=== PATIENT | male | born 1965 | race Caucasian/White ===

== ENCOUNTER 2018-11-11 21:39 | Inpatient (IN) ==
[2018-11-11 22:06] LABS: Hematocrit 41.5 % (42.0-52.0); Hemoglobin 14.1 gm/dL (13.5-18.0); Mean Cell Volume 93.3 fl (78-100); Mean Corpuscular Hemoglobin 31.7 pg (27-31); Mean Platelet Volume 10.5 fl (8-11.3); Neutrophil # 13.3 K/mm3 (1.3-6.0); Neutrophil % 80.3 % (42-75.0); Platelet Count 194 K/mm3 (150-450); Red Blood Count 4.45 M/mm3 (4.7-6.0); Red Cell Distribution Width 12.3 % (11.5-14.0); White Blood Count 16.6 K/mm3 (4.0-10.5)
[2018-11-11 22:23] LABS: Albumin * 3.1 gm/dl (3.4-5.0); Anion Gap 13.1 mmol/L (6.8-13.8); BUN/Creatinine Ratio 8.8 (9.0-21.6); Bilirubin, Total 0.4 mg/dL (0.0-1.1); Ca. Corrected For Albumin 9.2 mg/dL (8.4-10.2); Calcium * 8.8 mg/dL (7.9-10.9); Carbon Dioxide 27.7 mmol/L (24-32.6); Potassium 3.8 mmol/L (3.4-4.6); Total Protein 7.1 gm/dL (6.2-8.2)
[2018-11-11] MEDS ORDERED: ALBUTEROL SULFATE/IPRATROPIUM 3 ML NEBU IH ONE (22:31)
--- NOTE | 2018-11-11 22:32 | ERNOTE ---
Time Seen by Provider: 11/11/18 22:21 Stated Complaint: URI Presenting Symptoms:: cough Source: patient Exam Limitations: no limitations Immunizations: IMMUNIZATION HX Immunizations Up to Date Yes Allergies/Adverse Reactions: Allergies No Known Allergies Allergy (Unverified 11/11/18 21:52) Home Medications: HOME MEDICATIONS NK 11/11/18 [Last Taken Unknown] - History of Present Ilness Narrative: Patient states he has been had increased cough for a week or more. He has had s ome yellow and clear sputum. He states he has had some chills but does not know if he has had fever. Timing: getting worse Severity: moderate Frequency/Possible Cause: Reports: no prior episodes Modifying Factors - Improves: Reports: rest Modifying Factors - Worsens: Reports: activity, coughing Associated Symptoms: Reports: shortness of breath Review of Systems - Review of Systems Constitutional: Present: See HPI, fatigue EYE: Absent: vision changes ENT: Absent: nose congestion, nasal drainage Respiratory: Present: See HPI, shortness of breath, cough Cardiology: Absent: chest pain, palpitations Gastrointestinal/Abdominal: Present: eating less. Absent: nausea, vomiting Genitourinary: Absent: frequency, dysuria Musculoskeletal: Absent: back pain, muscle pain Skin: Absent: rash Neurological: Absent: numbness, tingling Medical History (Updated 11/11/18 @ 22:48 by Kan Mendez DO) No pertinent past medical history Surgical History: Surgical History (Updated 11/11/18 @ 21:52 by Judit Marie RN) No pertinent past surgical history Family History: Family History (Updated 11/11/18 @ 21:52 by Judit Marie RN) Other No pertinent family history Social History: Preferred Language Somali Do you have any congregational or No cultural preference? Smoking Status Current every day smoker Alcohol Use rarely Drug Use none No Social History Section defined Physical Exam - Physical Exam General Appearance: Present: wd/wn, alert, no apparent distress Head Exam: Present: normal inspection, no evidence of injury Neck: Present: normal inspection, nontender, supple Respiratory: Present: no respiratory distress, no accessory muscle use, expiration (prolonged), wheezing Cardiovascular/Chest: Present: no murmur, tachycardia Back Exam: Present: normal inspection, normal range of motion, no vertebral tenderness Extremity Exam: Present: normal inspection, normal range of motion Neurological Exam: Present: alert, oriented, normal mood/affect Skin Exam: Present: normal color, warm/dry Progress - Results and Orders Patient's Lab Results:: I have reviewed the patient's lab results. Results and Orders: Laboratory Tests 11/11/18 11/11/18 22:05 22:05 WBC 16.6 H Hgb 14.1 Hct 41.5 L Plt Count 194 Neutrophils % 80.3 H Sodium 132 Potassium 3.8 Chloride 95 L BUN 10 Creatinine 1.13 Random Glucose 98 Calcium 8.8 AST 21 ALT 26 - Vital Signs Patient's Vital Signs:: I have reviewed the patient's vital signs. Vital Signs: Vital Signs 11/11/18 21:49 Temperature 38.4 C H Pulse Rate 104 H Respiratory Rate 20 Blood Pressure 119/68 O2 Sat by Pulse Oximetry 92 L - X-Ray X-Ray #1 X-Ray: chest Interpretation: Interp. by me X-ray Comments: Early left lower lobe infiltrate. - Progress/Reassessment Chief Complaint: Upper Respiratory Symptoms Progress:: Unchanged Progress Note-Subjective: 11/11/18 23:[address] Hernandez she agrees with admission for community acquired pneumonia. 11/11/18 23:43 I spoke to the patient and his the patient was a little resistant to admission but agrees due to the fact that his oxygen levels are low. Departure Clinical Impression: Community acquired pneumonia Qualifiers: Laterality: left Lung location: lower lobe of lung Qualified Code(s): J18.1 - Lobar pneumonia, unspecified organism - Departure Disposition: Still a patient Condition: Good
[2018-11-11] MEDS ORDERED: cefTRIAXone SODIUM 1,000 MG/100 ML BAG IV ONE (22:50)
[2018-11-12] MEDS ORDERED: AZITHROMYCIN 250 MG TABLET PO ONE (00:11)
[2018-11-12] MEDS ORDERED: ACETAMINOPHEN 325 MG TABLET PO PRN (01:35)
[2018-11-12] MEDS: CEFDINIR 300 MG CAPSULE PO SCH ×2 (08:31→20:20)
--- NOTE | 2018-11-12 08:45 | HP ---
Chief Complaint - Chief Complaint Date of Service: 11/12/18 Time of Service: 08:45 Chief Complaint: shortness of breath History of Present Illness: Patient without past medical history presented to the ER after several days of cough and not feeling well. She got sunburned on November 02 and felt like he is dehydrated. He was more tired and worn out. He developed some cold symptoms with sinus congestion and cough. He was taking [id number] sinus and headache medication. He felt better 4 days prior, and mowed his lawn. That evening he developed shortness of breath. He had a productive cough of yellow sputum. He has been having a headache and felt warm, but did not check his temperature. He came to the ER yesterday after just not getting better. His appetite is decreased. He occasionally hears himself wheeze. He smokes a pack to a pack and a half since the age of 19. He has some chest pain with his cough. Denied nausea, vomiting, diarrhea, skin changes, urinary changes. In the ED, white blood cell count was 16.6, and lactate of 1.1. He had a fever of 38.4 on admission. He is requiring 3 L via nasal cannula. Chest x-ray shows a pneumonia in the left lower lobe. He was started on Rocephin and a azithromycin. He was also noted to have some mild hypoalbuminemia, with an albumin of 3.1. Medical History (Updated 11/11/18 @ 22:48 by Kan Mendez DO) No pertinent past medical history Surgical History: Surgical History (Updated 11/12/18 @ 00:42 by Bing Montes RN) Hx of tonsillectomy No pertinent past surgical history Family History: Family History (Last Updated 11/12/18 @ 00:45 by Bing Montes RN) Father Diabetes Hodgkin disease Mother History of thyroidectomy Mother Mechanical heart valve present Other No pertinent family history Social History: Patient Lives/Resources Home Utilized Occupation [employer] Preferred Language Turkmen Do you have any buddhism or Yes: Restoration cultural preference? Smoking Status Current some day smoker Have you smoked in the past 12 Yes months Do you dip or chew tobacco No Alcohol Use rarely Drug Use none No Social History Section defined Review Of Systems (GEN) - Review of Systems Generalized/Overall Review: Present: Malaise. Absent: Fever EENTM: Present: Nose Congestion Respiratory: Present: Cough, Shortness of Breath, Wheezing Cardiac: Present: Chest Pain. Absent: Edema Abdominal: Absent: Nausea - With cough, Vomiting, Diarrhea Genitourinary: Present: No Symptoms Reported Musculoskeletal: Present: No Symptoms Reported Neurological: Present: Headache Skin: Present: No Symptoms Reported Immunizations: IMMUNIZATION HX Immunizations Up to Date Yes Allergies/Adverse Reactions: Allergies Allergy/AdvReac Type Severity Reaction Status Date / Time No Known Allergies Allergy Unverified 11/11/18 21:52 Home Medications: HOME MEDICATIONS NK 11/11/18 [Last Taken Unknown] Exam - Exam Vital Signs: Vital Signs - Last Taken Temp 36.8 C 11/12/18 07:00 Pulse 80 11/12/18 07:00 Resp 17 11/12/18 07:00 BP 107/64 11/12/18 07:00 Pulse Ox 93 11/12/18 07:08 Constitutional: Present: Alert, Oriented x3, Cooperative, No distress, Other - thin ENT Exam: Present: dry mucous membranes Respiratory: Present: lungs clear, normal breath sounds, no respiratory distress, No wheezing, other - wearing O2 via NC at 3L Cardiovascular/Chest: Present: regular rate, rhythm. Absent: edema Abdomen: Present: Normal bowel sounds, soft, nontender Extremity: Absent: lower extremity edema Neurologic: Present: normal mood/affect Eye contact: Present: cooperative Diagnostic Studies: Abnormal Lab Results 11/11/18 11/11/18 Range/Units 22:05 22:05 WBC 16.6 H (4.0-10.5) K/mm3 RBC 4.45 L (4.7-6.0) M/mm3 Hct 41.5 L (42.0-52.0) % MCH 31.7 H (27-31) pg Immature Gran % (Auto) 0.50 H (0.001-0.429) % Immature Gran # (Auto) 0.09 H (0.000-0.0310) K/mm3 Neutrophils % 80.3 H (42-75.0) % Lymphocytes % 10.3 L (20-51) % Neutrophils # 13.3 H (1.3-6.0) K/mm3 Monocytes # 1.4 H (0.0-1.0) k/mm3 Chloride 95 L (97-106) mmol/L BUN/Creatinine Ratio 8.8 L (9.0-21.6) Albumin 3.1 L (3.4-5.0) gm/dl Laboratory Results WBC 16.6 K/mm3 (4.0-10.5) H 11/11/18 22:05 RBC 4.45 M/mm3 (4.7-6.0) L 11/11/18 22:05 Hgb 14.1 gm/dL (13.5-18.0) 11/11/18 22:05 Hct 41.5 % (42.0-52.0) L 11/11/18 22:05 MCV 93.3 fl (78-100) 11/11/18 22:05 MCH 31.7 pg (27-31) H 11/11/18 22:05 MCHC 34.0 g/dl (32-36) 11/11/18 22:05 RDW 12.3 % (11.5-14.0) 11/11/18 22:05 Plt Count 194 K/mm3 (150-450) 11/11/18 22:05 MPV 10.5 fl (8-11.3) 11/11/18 22:05 Immature Gran % (Auto) 0.50 % (0.001-0.429) H 11/11/18 22:05 Immature Gran # (Auto) 0.09 K/mm3 (0.000-0.0310) H 11/11/18 22:05 80.3 % (42-75.0) H 11/11/18 22:05 10.3 % (20-51) L 11/11/18 22:05 8.6 % (0.0-9) 11/11/18 22:05 0.1 % (0.0-3.0) 11/11/18 22:05 0.2 % (0.0-1.0) 11/11/18 22:05 Nucleated RBC % 0.0 k/mm3 (0-1) 11/11/18 22:05 13.3 K/mm3 (1.3-6.0) H 11/11/18 22:05 1.71 k/mm3 (1.5-3.5) 11/11/18 22:05 1.4 k/mm3 (0.0-1.0) H 11/11/18 22:05 0.0 k/mm3 (0.0-0.7) 11/11/18 22:05 Absolute Basophils 0.0 k/mm3 (0.0-0.1) 11/11/18 22:05 Sodium 132 mmol/L (132-142) 11/11/18 22:05 132 mmol/L (130-142) 11/11/18 22:05 Potassium 3.8 mmol/L (3.4-4.6) 11/11/18 22:05 Chloride 95 mmol/L (97-106) L 11/11/18 22:05 Carbon Dioxide 27.7 mmol/L (24-32.6) 11/11/18 22:05 13.1 mmol/L (6.8-13.8) 11/11/18 22:05 BUN 10 mg/dL (6-23) 11/11/18 22:05 1.13 mg/dL (0.4-1.4) 11/11/18 22:05 Est GFR (Non-Af Amer) 72 mL/min (60-130) 11/11/18 22:05 8.8 (9.0-21.6) L 11/11/18 22:05 98 mg/dL (70-110) 11/11/18 22:05 1.1 mmol/L (0.4-2.0) 11/11/18 22:05 Calcium 8.8 mg/dL (7.9-10.9) 11/11/18 22:05 Calcium Adj for Albumin 9.2 mg/dL (8.4-10.2) 11/11/18 22:05 0.4 mg/dL (0.0-1.1) 11/11/18 22:05 AST 21 U/L (0-48) 11/11/18 22:05 ALT 26 U/L (19-67) 11/11/18 22:05 67 U/L (50-170) 11/11/18 22:05 7.1 gm/dL (6.2-8.2) 11/11/18 22:05 3.1 gm/dl (3.4-5.0) L 11/11/18 22:05 Assessment/Plan - Assessment/Plan (1) Community acquired pneumonia Assessment: With his smoking history, patient may have underlying COPD. He received a dose of Rocephin and azithromycin last night in the ER. Will administer 3 days of prednisone. We will transition to p.o. Ceftinir, continue azithromycin, and wean O2 as tolerated. Currently requiring 3 L via nasal cannula. Anticipate DC within 24 to 48 hours. Problem: Acute Qualifiers: Laterality: left Lung location: lower lobe of lung Qualified Code(s): J18.1 - Lobar pneumonia, unspecified organism
[2018-11-12] MEDS: predniSONE 20 MG TABLET PO SCH (09:40)
[2018-11-12] MEDS: AZITHROMYCIN 250 MG TABLET PO SCH (09:41)
[2018-11-13] MEDS: CEFDINIR 300 MG CAPSULE PO SCH (08:24)
[2018-11-13] MEDS: predniSONE 20 MG TABLET PO SCH (08:24)
[2018-11-13] MEDS: AZITHROMYCIN 250 MG TABLET PO SCH (08:25)
--- NOTE | 2018-11-13 11:18 | DS ---
(1) Community acquired pneumonia Problem: Acute Qualifiers: Laterality: left Lung location: lower lobe of lung Qualified Code(s): J18.1 - Lobar pneumonia, unspecified organism Description of Stay: Patient without past medical history presented to the ER after several days of cough and not feeling well. She got sunburned on November 02 and felt like he is dehydrated. He was more tired and worn out. He developed some cold symptoms with sinus congestion and cough. He was taking [id number] sinus and headache medication. He felt better and mowed his lawn. That evening he developed shortness of breath. He had a productive cough of yellow sputum. He has been having a headache and felt warm, but did not check his temperature. He came to the ER 11/11 after just not getting better. His appetite is decreased. He occasionally hears himself wheeze. He smokes a pack to a pack and a half since the age of 19. He has some chest pain with his cough. Denied nausea, vomiting, diarrhea, skin changes, urinary changes. In the ED, white blood cell count was 16.6, and lactate of 1.1. He had a fever of 38.4 on admission. He initially 3 L via nasal cannula, and was weaned off by the day of DC. Chest x-ray shows a pneumonia in the left lower lobe. He was started on Rocephin and a azithromycin. He was also noted to have some mild hypoalbuminemia, with an albumin of 3.1. He was transitioned to cefdinir, and given two doses of 60 mg prednisone. He felt comfortable going home on the day of DC. Procedures Performed: none Results and Findings: Pending Mircobiology Results 11/11/18 23:59 Blood Blood Culture - Preliminary NO GROWTH 24 HOURS 11/11/18 22:05 Blood Blood Culture - Preliminary NO GROWTH 24 HOURS Lab Pending Results 11/11/18 22:05: WBC 16.6 H, RBC 4.45 L, Hgb 14.1, Hct 41.5 L, MCV 93.3, MCH 31.7 H, MCHC 34.0, RDW 12.3, Plt Count 194, MPV 10.5, Immature Gran % (Auto) 0.50 H, Immature Gran # (Auto) 0.09 H, Neutrophils % 80.3 H, Lymphocytes % 10.3 L, Monocytes % 8.6, Eosinophils % 0.1, Basophils % 0.2, Nucleated RBC % 0.0, Neutrophils # 13.3 H, Lymphocytes # 1.71, Monocytes # 1.4 H, Eosinophils # 0.0, Absolute Basophils 0.0 11/11/18 22:05: Sodium 132, Plasma Sodium 132, Potassium 3.8, Chloride 95 L, Carbon Dioxide 27.7, Anion Gap 13.1, BUN 10, Creatinine 1.13, Est GFR (Non-Af Amer) 72, BUN/Creatinine Ratio 8.8 L, Random Glucose 98, Calcium 8.8, Calcium Adj for Albumin 9.2, Total Bilirubin 0.4, AST 21, ALT 26, Alkaline Phosphatase 67, Total Protein 7.1, Albumin 3.1 L 11/11/18 22:05: Lactic Acid, Venous 1.1 Disposition: Home self-care Condition: Good Discharge Activity: Activity as tolerated Discharge Diet: General/regular food Problem Oriented Discharge Instructions to Patient/Family: Smoking Cessation, Tips for Success, [id number], Smoking Hazards, Smoking Cessation, Tips for Success Prescriptions (Any new or edited meds): Cefdinir [Omnicef] 300 mg PO BID #7 cap Azithromycin [Zithromax] 250 mg PO DAILY #3 tab Complete Home Medications List: Complete Home Medication List: Azithromycin [Zithromax] 250 mg PO DAILY #3 tab 11/13/18 Cefdinir [Omnicef] 300 mg PO BID #7 cap 11/13/18
[2018-11-13 13:27] VITALS: BP 108/62
== END 2018-11-13 13:10 | disposition home or self-care (01) | DRG 195 ==
LOC: ER 21:39 → MS 23:46
PROVIDERS: ADMIT Family Medicine; ATTEND Family Medicine
CPT/HCPCS: 36415; 71020; 71046; 80053; 83605; 85025; 87040; 94640; 94664; 94760; 96365; 99283